=== PATIENT | female | born 1975 | race Caucasian/White ===

== ENCOUNTER 2020-10-25 11:22 | Emergency (ER) | payer OTHER ==
[2020-10-25] MEDS ORDERED: MEDROL4 MG PO (16:43)
[2020-10-25] MEDS ORDERED: CEPHALEXIN500 MG PO (16:43)
== END 2020-10-25 17:00 | disposition home or self-care (01) ==
LOC: ER1 11:22
DX: S39.012A Strain of muscle, fascia and tendon of lower back, initial encounter (principal); N39.0 Urinary tract infection, site not specified; M51.17 Intervertebral disc disorders with radiculopathy, lumbosacral region; E11.9 Type 2 diabetes mellitus without complications; F17.200 Nicotine dependence, unspecified, uncomplicated; Z90.49 Acquired absence of other specified parts of digestive tract; Z79.899 Other long term (current) drug therapy; X50.9XXA Other and unspecified overexertion or strenuous movements or postures, initial encounter
CPT/HCPCS: 72131; 73502; 81001; 84703; 96372; 99284; J1100; J1885